=== PATIENT | male | born 1990 | race Caucasian/White ===

== ENCOUNTER 2022-02-22 01:47 | Emergency (ER) | payer OTHER ==
[2022-02-22 02:06] VITALS: BP 110/76; PULSE 59; RESP 18; TEMP 98.4
[2022-02-22] MEDS ORDERED: BUPIVACAINE (PF) 0.5% 30 ML VIAL SQ STA (02:08)
[2022-02-22] MEDS ORDERED: IBUPROFEN 600 MG STARTER PACK 4 TAB BTL PO STA (02:09)
[2022-02-22] MEDS ORDERED: PENICILLIN VK 500MG STARTER 4 TAB BTL PO STA (02:09)
[2022-02-22] MEDS ORDERED: PENICILLIN V POTASSIUM 250 MG TAB PO STA (02:09)
[2022-02-22] MEDS ORDERED: ONDANSETRON ODT 4 MG TAB PO STA (02:26)
--- NOTE | 2022-02-22 02:26 | ED ---
ENT HPI - General Chief complaint: Dental/Oral Stated complaint: Dental Abscess Time Seen by Provider: 02/22/22 02:03 Source: patient, RN notes reviewed Mode of arrival: ambulatory Limitations: no limitations - History of Present Illness Initial comments: This is a pleasant 31-year-old male presents emergency department complaining of left upper dental pain which is bothering him for a few days. Patient states she's had dental abscesses previously and states this is similar. No headache, no fever or chills, no changes in vision or hearing, no sore throat or difficulty with speech, no neck pain, no chest pain or shortness of breath, no abdominal pain, no nausea or vomiting, no changes in urination or bowel movements, no numbness or tingling, no extremity pain, no skin rashes or lesions. Past medical, surgical, social, and family history reviewed. Patient is a cigarette smoker. - Related Data Previous Rx's Medication Instructions Recorded Acetaminophen-Codeine 300-30mg 1 each PO Q6H PRN #20 tablet 02/02/15 [Tylenol #3] Clindamycin [Cleocin] 300 mg PO Q6H 10 Days capsule 02/02/15 Ibuprofen [Motrin] 600 mg PO Q6HR PRN #40 day 02/02/15 Acetaminophen Tab [Tylenol Tab] 500 mg PO Q6H PRN #24 tablet 02/22/22 Ibuprofen [Motrin] 600 mg PO Q8HR PRN #30 tab 02/22/22 Penicillin V Potassium [Pen Vee K] 500 mg PO QID #40 tablet 02/22/22 Allergies Allergy/AdvReac Type Severity Reaction Status Date / Time No Known Allergies Allergy Verified 02/22/22 02:05 Review of Systems ROS Statement: Those systems with pertinent positive or pertinent negative responses have been documented in the HPI. ROS Other: All systems not noted in ROS Statement are negative. Past Medical History Past Medical History: No Reported History History of Any Multi-Drug Resistant Organisms: MRSA Date of last positivie culture/infection: 2011 MDRO Source:: left leg Past Surgical History: No Surgical Hx Reported Past Psychological History: No Psychological Hx Reported Smoking Status: Current every day smoker Past Alcohol Use History: None Reported Past Drug Use History: None Reported General Exam Limitations: no limitations General appearance: alert, in no apparent distress Head exam: Present: atraumatic, normocephalic, normal inspection Eye exam: Present: normal appearance, PERRL, EOMI. Absent: scleral icterus, conjunctival injection, periorbital swelling ENT exam: Present: mucous membranes moist, TM's normal bilaterally, normal external ear exam. Absent: normal exam, normal oropharynx, mucous membranes dry Expanded Ear exam: Present: normal external inspection Teeth exam: Present: dental caries, dental tenderness # (Adjacent to tooth #13), other (Dental abscess noted adjacent tooth #13. No significant surrounding cellulitis, no evidence of deep space tissue infection or peritonsillar abscess) Throat exam: negative: tonsillar erythema, tonsillomegaly, tonsillar exudate, R peritonsillar mass, L peritonsillar mass Neck exam: Present: normal inspection, full ROM. Absent: tenderness, meningismus, lymphadenopathy Respiratory exam: Present: normal lung sounds bilaterally. Absent: respiratory distress, wheezes, rales, rhonchi, stridor Cardiovascular Exam: Present: regular rate, normal rhythm, normal heart sounds. Absent: systolic murmur, diastolic murmur, rubs, gallop, clicks GI/Abdominal exam: Present: soft, normal bowel sounds. Absent: distended, tenderness, guarding, rebound, rigid Extremities exam: Present: normal inspection, full ROM, normal capillary refill. Absent: tenderness, pedal edema, joint swelling, calf tenderness Back exam: Present: normal inspection Neurological exam: Present: alert, oriented X3, CN II-XII intact Psychiatric exam: Present: normal affect, normal mood Skin exam: Present: warm, dry, intact, normal color. Absent: rash Course Vital Signs 02/22/22 02:04 Temperature 98.4 F Pulse Rate 59 L Respiratory 18 Rate Blood Pressure 110/76 O2 Sat by Pulse 99 Oximetry Procedures - Incision & Drainage Consent Obtained: verbal consent Indication: Left upper dental abscess Size (cm): 1 Needle Aspiration Performed?: Yes (Purulent) I&D Drainage Obtained: Pus Culture Obtained?: No Patient Tolerated Procedure: well, no complications - Nerve Block Consent Obtained: verbal consent Local Anesthetic Used: Marcaine 0.5% Side: left Nerve Blocks: other (Dental) Intraoral Nerve Block: superior alveolar (Left) Procedure Successful: Yes Complications: none Patient Tolerated Procedure: well, no complications - Smoking Cessation Time Spent Discussing Smoking Cessation w/Patient (Minutes): 3 Patient Acknowledges Need for Cessation: No Medical Decision Making - Medical Decision Making Patient presents with a dental abscess. Incision and drainage performed. Patient consented to the procedure prior to. All risks and benefits discussed. Risk of pain, worsening infection, other complications discussed in detail. Patient voices understanding. Patient placed on penicillin VK 500 mg 4 times a day. Patient was told to return to the ER for any signs or symptoms worsen. Told to return immediately if any other problems arise. All questions answered. Treatment plan discussed. Patient in agreement Every effort has been made to ensure accuracy of this dictation. However, due to the limitations of electronic medical records and dictation devices, errors in charting still occur. Customer Care Assistant Dr. Dorsey Disposition Clinical Impression: Dental abscess, Cigarette smoker Disposition: HOME SELF-CARE Condition: Stable Instructions (If sedation given, give patient instructions): Dental Abscess (ED), How to Stop Smoking (ED) Additional Instructions: Follow-up with your regular physician as directed. Return to the ER immediately if any symptoms worsen, new symptoms arise, or any other problems develop. Follow-up with a dentist for reevaluation as discussed. Take all antibiotics as discussed. Prescriptions: Ibuprofen [Motrin] 600 mg PO Q8HR PRN #30 tab PRN Reason: Pain Penicillin V Potassium [Pen Vee K] 500 mg PO QID #40 tablet Acetaminophen Tab [Tylenol Tab] 500 mg PO Q6H PRN #24 tablet PRN Reason: Pain Is patient prescribed a controlled substance at d/c from ED?: No Referrals: Patrick Smallwood [STAFF PHYSICIAN] - 02/24/22 Time of Disposition: 03:06
== END 2022-02-22 03:13 | disposition home or self-care (01) ==
LOC: EC 01:47
DX: K04.7 Periapical abscess without sinus (principal); F17.210 Nicotine dependence, cigarettes, uncomplicated
CPT/HCPCS: 41800; 64400; 99283